=== PATIENT | male | born 1980 | race Caucasian/White ===

== ENCOUNTER → 2018-05-14 | Outpatient (CLI) | payer OTHER | LOC: FIMAGING 17:35 | PROVIDERS: ATTEND Internal Medicine | DX: R93.2 Abnormal findings on diagnostic imaging of liver and biliary tract (principal) ==

== ENCOUNTER → 2019-01-03 | Outpatient (CLI) | payer OTHER ==
[~2019-01-03] MED LIST: GADOBUTROL 10 ML VIAL IVP ONE
== END ==
LOC: FIMAGING 17:44
PROVIDERS: ATTEND Family Medicine
DX: H57.12 Ocular pain, left eye (principal); J01.20 Acute ethmoidal sinusitis, unspecified; J01.00 Acute maxillary sinusitis, unspecified; J01.30 Acute sphenoidal sinusitis, unspecified
CPT/HCPCS: A9585

== ENCOUNTER 2019-01-18 10:14 | Emergency (ER) | payer OTHER ==
[2019-01-18 10:24] VITALS: BP 113/71
[2019-01-18] MEDS ORDERED: IBUPROFEN 800 MG TAB PO ONE (10:39)
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
== END 2019-01-18 12:11 | disposition home or self-care (01) ==
DX: S39.012A Strain of muscle, fascia and tendon of lower back, initial encounter (principal); S16.1XXA Strain of muscle, fascia and tendon at neck level, initial encounter; V49.49XA Driver injured in collision with other motor vehicles in traffic accident, initial encounter; Y99.9 Unspecified external cause status